=== PATIENT | male | born 1980 | race Caucasian/White ===

== ENCOUNTER 2017-07-25 23:33 | Emergency (ER) | payer SELFPAY ==
[~2017-07-25] VITALS: Ht 175.3 cm; Wt 81.6 kg
[2017-07-26 00:15] VITALS: BP_SYST 125
--- NOTE | 2017-07-26 00:33 | NUR ---
Patient to ER bed 8 to gown for evaluation. Side rails up. Report given to ELIAS LOPEZ.
--- NOTE | 2017-07-26 00:34 | NUR ---
Pt brought in by girlfriend in stable condition. Pt c/o left index finger pain 09/26. Pt stated he noticed swelling and redness 2 days ago. Pt stated that his fingers are usually numb from the type of work he does. Pt stated that he has a hx of cellulitis to the hands. Pt is unable to bend left index finger due to swelling. Pt denies any trauma or injury to the left index finger. -sob -chest pain. No acute distress noted at this time, will continue to monitor.
--- NOTE | 2017-07-26 00:51 | NUR ---
ER at bedside examining patient.
[2017-07-26] MEDS ORDERED: ceFAZolin SODIUM 1 GM VIAL IM ONE (01:00)
[2017-07-26] MEDS ORDERED: KETOROLAC TROMETHAMINE 60 MG/2 ML VIAL IM ONE (01:00)
--- NOTE | 2017-07-26 01:34 | NUR ---
Site to left index finger cleansed with NS & iodine. Gauze dressing applied. Tetanus vaccination current.
[2017-07-26 01:52] VITALS: BP_SYST 128
--- NOTE | 2017-07-26 01:52 | NUR ---
Patient given written and verbal discharge instructions and verbalizes understanding. ER MD Stokes discussed with patient the results and treatment provided. Patient in stable condition. ID arm band removed. Rx of bactrim, keflex, ibuprofen given. Patient educated on pain management and to follow up with PMD. Pain Scale 0/10. Opportunity for questions provided and answered. Medication side effect fact sheet provided.
== END 2017-07-26 01:52 | disposition home or self-care (01) ==
LOC: SED 23:33
DX: L03.012 Cellulitis of left finger (principal)
CPT/HCPCS: 73140; 87070; 87186; 96372; 99285; J0690; J1885

== ENCOUNTER 2018-01-09 01:19 | Emergency (ER) | payer SELFPAY ==
[~2018-01-09] VITALS: Ht 175.3 cm; Wt 82.6 kg
[2018-01-09 01:33] VITALS: BP_SYST 119
[2018-01-09 05:48] LABS: BASOPHILS # (AUTO) 0.1 K/uL (0.0-0.2); BASOPHILS % (AUTO) 1.7 % (0.0-2.0); EOSINOPHILS # (AUTO) 0.2 K/uL (0.0-0.4); HEMATOCRIT 36.8 % (36-54); HEMOGLOBIN 12.2 g/dL (14.0-18.0); LYMPHOCYTES # (AUTO) 1.9 K/uL (1.0-5.5); LYMPHOCYTES % (AUTO) 37.9 % (20.5-51.5); MEAN CORPUSCULAR HEMOGLOBIN 31 pg (27-31); MEAN CORPUSCULAR HGB CONC 33 % (32-36); MEAN CORPUSCULAR VOLUME 94 fL (79.0-98.0); MONOCYTES # (AUTO) 0.5 K/uL (0.0-1.0); NEUTROPHILS # (AUTO) 2.4 K/uL (1.8-7.7); NEUTROPHILS % (AUTO) 48.4 % (40.0-70.0); PLATELET COUNT (AUTO) 277 K/uL (130-430); RED BLOOD CELL COUNT(AUTO) 3.92 MIL/uL (4.2-6.2); RED CELL DISTRIBUTION WIDTH 12.5 % (9.0-15.0); WHITE BLOOD COUNT (AUTO) 5.1 K/uL (4.8-10.8)
[2018-01-09 05:49] LABS: CALCIUM 8.5 mg/dL (8.4-11.0); CREATININE 1.08 mg/dL (0.55-1.30); POTASSIUM 3.9 mmol/L (3.5-5.1)
[2018-01-09 05:55] LABS: ALBUMIN 3.4 g/dL (3.4-4.8); TOTAL BILIRUBIN 0.4 mg/dL (0.0-1.0)
[2018-01-09 06:01] LABS: BILIRUBIN,URINE NEGATIVE (NEGATIVE); BLOOD, URINE NEGATIVE (NEGATIVE); CLARITY/URINE CLEAR (CLEAR); COLOR,URINE YELLOW (YELLOW); GLUCOSE,URINE NEGATIVE (NEGATIVE); KETONES,URINE TRACE (NEGATIVE); LEUKOCYTE ESTERASE ,URINE NEGATIVE (NEGATIVE); NITRITE, URINE NEGATIVE (NEGATIVE); PROTEIN URINE NEGATIVE (NEGATIVE); UROBILINOGEN,URINE 0.2 (0.2-1.0)
[2018-01-09 06:17] LABS: BARBITURATE, URINE NEGATIVE (NEG <=200); BENZODIAZEPINE, URINE NEGATIVE (NEG <=150); CANNABINOID, URINE POSITIVE (NEG <=50); COCAINE, URINE NEGATIVE (NEG <=150); METHAMPHETAMINES SCREEN,URINE POSITIVE (NEG <=500); OPIATE, URINE NEGATIVE (NEG <=100); PHENCYCLIDINE SCREEN,URINE NEGATIVE (NEG <=25); UR TRICYCLIC ANTIDEPRESSANTS NEGATIVE (NEG <=300); URINE AMPHETAMINE POSITIVE (NEG <=500); URINE METHADONE NEGATIVE (NEG <=200); URINE OXYCODONE SCREEN NEGATIVE (NEG <=100); URINE PROPOXYPHENE SCREEN NEGATIVE (NEG <=300)
[2018-01-09 07:53] VITALS: BP_SYST 127
== END 2018-01-09 07:54 | disposition home or self-care (01) ==
LOC: SED 01:19
DX: R20.2 Paresthesia of skin (principal)
CPT/HCPCS: 36415; 70450-TC; 80053; 80307; 81003; 82962; 85025; 99284